=== PATIENT | male | born 1995 | race Caucasian/White ===

== ENCOUNTER 2022-03-28 12:24 | Emergency (ER) | payer BC ==
[~2022-03-28] VITALS: Ht 172.7 cm; Wt 59.0 kg
[2022-03-28] MEDS ORDERED: ACETAMINOPHEN 650 MG/20.3 ML LIQUID UDC ONE (12:40)
[2022-03-28] MEDS ORDERED: DIAZEPAM 2 MG TABLET ONE (12:40)
[2022-03-28] MEDS ORDERED: ACETAMINOPHEN 650 MG/20.3 ML LIQUID UDC PO ONE (12:45)
[2022-03-28] MEDS ORDERED: DIAZEPAM 2 MG TABLET PO ONE (12:45)
[2022-03-28 12:49] LABS: MEAN CORPUSCULAR HEMOGLOBIN 29.7 uug (23.8-33.4); MEAN CORPUSCULAR VOLUME 85.2 fL (73.0-96.2); PLATELET COUNT (AUTO) 247 K/uL (152-348)
[2022-03-28] MEDS ORDERED: POLY17PO4 PO (12:50)
[2022-03-28 12:59] LABS: CREATININE 0.8 mg/dL (0.6-1.3); POTASSIUM 4.1 mmol/L (3.5-5.1)
--- NOTE | 2022-03-28 13:00 | NUR ---
Pt arrived [facility] 84 with c/o abd pain radiating to the lower back. Pt stated that it started yesterday, last BM and oral intake was early today per pt. Denies headache, n/v and dizziness. Seen by Dr. Ponce for MSE.
[2022-03-28 13:05] LABS: BILIRUBIN,TOTAL 1.3 mg/dL (0.2-1.0); TOTAL PROTEIN, SERUM 8.2 g/dL (6.4-8.2)
--- NOTE | 2022-03-28 14:02 | NUR ---
Pt discharged to home in stable condition. Written and verbal after care instructions given. Pt verbalizes understanding of instructions. Stressed follow up or return to ER for worsening s/s.
[2022-03-28 14:03] VITALS: BP 124/76
== END 2022-03-28 14:00 | disposition home or self-care (01) ==
LOC: ER 12:24
DX: R10.9 Unspecified abdominal pain (principal); K58.9 Irritable bowel syndrome, unspecified; R07.9 Chest pain, unspecified
CPT/HCPCS: 36415; 71045; 83690; 85025; A4663

== ENCOUNTER 2022-07-13 09:35 | Emergency (ER) | payer BC ==
[~2022-07-13] VITALS: Ht 172.7 cm; Wt 68.0 kg
[~2022-07-13 09:35] MED LIST: POLY17PO4 PO
[2022-07-13 10:14] LABS: *BILIRUBIN,URIN NEGATIVE (NEGATIVE); *BLOOD, URINE NEGATIVE (NEGATIVE); *CLARITY,URINE CLEAR (CLEAR); *COLOR,URINE YELLOW (YELLOW); *KETONES,URINE TRACE (NEGATIVE); *UROBILINOGEN,URINE 0.2 E.U./dl (NORMAL); LEUKOCYTE ESTERASE ,URINE NEGATIVE (NEGATIVE); NITRITE, URINE NEGATIVE (NEGATIVE); PH,URINE 5.5 (5.0-8.0); UGLUCOSE NEGATIVE (NEGATIVE)
--- NOTE | 2022-07-13 10:18 | NUR ---
PT IS IN ROOM #2A. DR MATTHEWS EVALUATED THE PT.
[2022-07-13 10:59] LABS: CARBON DIOXIDE 28 mmol/L (21-32); CHLORIDE 103 mmol/L (98-107); CREATININE 0.7 mg/dL (0.6-1.3); GLUCOSE 94 mg/dL (74-106); POTASSIUM 3.9 mmol/L (3.5-5.1); UREA NITROGEN, BLOOD 10 mg/dL (7-18)
--- NOTE | 2022-07-13 12:29 | NUR ---
PT WAS D/C'd TO HOME. D/C INSTRUCTIONS GIVEN TO THE PT BY DR MATTHEWS.
[2022-07-13 12:30] VITALS: BP 128/77
== END 2022-07-13 12:31 | disposition home or self-care (01) ==
LOC: ER 09:35
DX: R30.0 Dysuria (principal); N36.8 Other specified disorders of urethra; R00.0 Tachycardia, unspecified; K58.9 Irritable bowel syndrome, unspecified; Z87.442 Personal history of urinary calculi
CPT/HCPCS: 36415; A4663

== ENCOUNTER 2024-02-20 04:30 | Emergency (ER) | payer BC, OTHER ==
[~2024-02-20] VITALS: Ht 172.7 cm; Wt 70.3 kg
[2024-02-20 04:32] VITALS: O2SAT 98
[2024-02-20] MEDS ORDERED: NORT10CA MT (04:39)
[2024-02-20] MEDS ORDERED: NITR30OI6 RC (05:14)
[2024-02-20] MEDS ORDERED: LACT10SO58 PO (05:14)
[2024-02-20] MEDS ORDERED: NITROGLYCERIN OINT 1 GM PACKET TP ONE (05:17)
[2024-02-20] MEDS: NITROGLYCERIN OINT 1 GM PACKET TP ONE (05:22)
[2024-02-20 05:23] VITALS: BP 133/68; TEMP 97.6
== END 2024-02-20 05:23 | disposition home or self-care (01) ==
LOC: ER 04:44
DX: K62.89 Other specified diseases of anus and rectum (principal); K58.9 Irritable bowel syndrome, unspecified
CPT/HCPCS: A4606; A4663